=== PATIENT | male | born 1985 | race Caucasian/White ===

== ENCOUNTER 2020-10-28 11:18 | Inpatient (IN) | payer OTHER ==
[2020-10-28 11:56] VITALS: BMI 22.6
[2020-10-28] MEDS ORDERED: ONDANSETRON *ODT* 4 MG TABLET SL PRN (12:40)
[2020-10-28] MEDS ORDERED: NALOXONE (NARCAN) HCL 4 MG/0.1 ML SPRAY NS PRN (12:40)
[2020-10-28] MEDS ORDERED: MAGNESIUM HYDROX 2400MG/30ML ORAL SUSPENSION 30 ML CUP PO PRN (12:40)
[2020-10-28] MEDS ORDERED: MAG HYDROX/AL HYDROX/SIMETH 30 ML UNIT-DOSE CUP PO PRN (12:40)
[2020-10-28] MEDS ORDERED: IBUPROFEN 400 MG TABLET (FP) PO PRN (12:40)
[2020-10-28] MEDS ORDERED: MAGNESIUM CITRATE 300 ML BOTTLE PO PRN (12:40)
[2020-10-28] MEDS ORDERED: BISMUTH SUBSALICYLATE 524 MG/30 ML UD PO PRN (12:40)
[2020-10-28] MEDS ORDERED: MENTHOL/PHENOL 1 EACH UD MM PRN (12:40)
[2020-10-28] MEDS ORDERED: ACETAMINOPHEN 325 MG TABLET (FP) PO PRN ×2 (12:40)
[2020-10-28] MEDS ORDERED: cloNIDine HCL 0.1 MG TABLET PO PRN (12:40)
[2020-10-28] MEDS ORDERED: METHOCARBAMOL 500 MG TABLET PO PRN (12:40)
[2020-10-28] MEDS ORDERED: NICOTINE POLACRILEX 2 MG GUM BUC PRN (12:40)
[2020-10-28] MEDS: hydrOXYzine PAMOATE 25 MG CAPSULE (FP) PO SCH ×3 (13:48→22:39)
[2020-10-28] MEDS: NICOTINE 14 MG/24 HOURS TOPICAL PATCH TD SCH (13:49)
[2020-10-28] MEDS: PRENATAL VITAMINS W/ FOLIC ACID TABLET (FP) PO SCH (13:49)
[2020-10-28] MEDS: MELATONIN 5 MG TABLETS PO SCH (22:39)
[2020-10-28] MEDS: THIAMINE HCL 100 MG TABLET (FP) PO SCH (22:39)
[2020-10-29] MEDS: hydrOXYzine PAMOATE 25 MG CAPSULE (FP) PO SCH ×5 (06:09→22:39)
[2020-10-29] MEDS ORDERED: METHADONE HCL 10 MG TABLET (FOR DETOX USE ONLY) PO ONE ×2 (10:00)
[2020-10-29] MEDS: NICOTINE 14 MG/24 HOURS TOPICAL PATCH TD SCH (10:18)
[2020-10-29] MEDS: PRENATAL VITAMINS W/ FOLIC ACID TABLET (FP) PO SCH (10:18)
[2020-10-29] MEDS ORDERED: TAMSULOSIN HCL 0.4 MG CAP PO SCH (13:19)
[2020-10-29] MEDS: MELATONIN 5 MG TABLETS PO SCH (22:39)
[2020-10-29] MEDS: THIAMINE HCL 100 MG TABLET (FP) PO SCH (22:39)
[2020-10-30] MEDS: hydrOXYzine PAMOATE 25 MG CAPSULE (FP) PO SCH ×2 (05:48→10:07)
[2020-10-30] MEDS ORDERED: METHADONE HCL 10 MG TABLET (FOR DETOX USE ONLY) ONE (09:21)
[2020-10-30] MEDS ORDERED: METHADONE HCL 5 MG TABLET (FOR DETOX USE ONLY) ONE (09:21)
[2020-10-30] MEDS ORDERED: METHADONE (DETOX) 10 MG, METHADONE (DETOX) 5 MG PO ONE (10:00)
[2020-10-30] MEDS: NICOTINE 14 MG/24 HOURS TOPICAL PATCH TD SCH (10:07)
[2020-10-30] MEDS: PRENATAL VITAMINS W/ FOLIC ACID TABLET (FP) PO SCH (10:07)
[2020-10-30 10:16] LABS: HEMATOCRIT 45.7 % (35.4-49); HEMOGLOBIN 15.1 GM/dL (11.7-16.9); MCH 28.4 pg (25.7-33.7); MCHC 33.1 g/dl (32.0-35.9); MEAN CELL VOLUME 85.9 fl (80-96); MEAN PLT VOLUME 8.4 fl (7.5-11.1); PLATELET COUNT 260 K/MM3 (134-434); RBC 5.32 M/mm3 (4.00-5.60); RDW 13.3 % (11.9-15.9); WHITE BLOOD COUNT 6.2 K/mm3 (4.0-10.0)
[2020-10-30 10:17] LABS: CALCIUM 9.2 mg/dL (8.5-10.1)
[2020-10-30 10:18] LABS: ALBUMIN 3.8 g/dl (3.4-5.0); BLOOD UREA NITROGEN 11.8 mg/dL (7-18)
[2020-10-30 10:22] LABS: BILIRUBIN,TOTAL 0.9 mg/dL (0.2-1)
[2020-10-30 10:24] LABS: CREATININE 0.8 mg/dL (0.55-1.3)
[2020-10-30 10:26] LABS: TOT PROT 8.1 g/dl (6.4-8.2)
[2020-10-30 13:10] VITALS: BP 125/76; PULSE 93; TEMP 96.9
[2020-11-01] MEDS ORDERED: METHADONE HCL 5 MG TABLET (FOR DETOX USE ONLY) PO ONE (06:00)
== END 2020-10-30 15:34 | disposition home or self-care (01) | DRG 773 ==
LOC: YASAS 11:18 → Y6N 12:57
PROVIDERS: ADMIT Allergy & Immunology; ATTEND Allergy & Immunology
PROC: HZ2ZZZZ Detoxification Services for Substance Abuse Treatment (ICD-10-PCS; principal; 2020-10-28)
DX: F11.23 Opioid dependence with withdrawal (principal); F14.20 Cocaine dependence, uncomplicated; F12.20 Cannabis dependence, uncomplicated; F17.210 Nicotine dependence, cigarettes, uncomplicated; F19.24 Other psychoactive substance dependence with psychoactive substance-induced mood disorder; F32.9 Major depressive disorder, single episode, unspecified; B18.2 Chronic viral hepatitis C
CPT/HCPCS: 36415; 80053; 85027; 86780; 93005; 93010; C9803; U0003; U0005